=== PATIENT | female | born 1945 | race Caucasian/White ===

== ENCOUNTER → 2018-09-03 14:58 | Outpatient (CLI) | payer MEDICARE, OTHER, SELFPAY ==
--- NOTE | 2018-09-03 | DI.MG.S_ITS ---
BILATERAL DIGITAL SCREENING MAMMOGRAM 3D/2D WITH CAD: 09/03/2018 CLINICAL: Routine screening. Family history of breast cancer. Comparison is made to exams dated: 04/17/2017 mammogram, 11/09/2015 mammogram, and 09/12/2014 mammogram - [facility]. The tissue of both breasts is extremely dense, which lowers the sensitivity of mammography. Current study was also evaluated with a Computer Aided Detection (CAD) system. No significant masses, calcifications, or other findings are seen in either breast. There has been no significant interval change. IMPRESSION: NEGATIVE There is no mammographic evidence of malignancy. A 1 year screening mammogram is recommended. This exam was interpreted at Station ID: [id number]. NOTE: For mammograms, a report in lay terms will be sent to the patient. Approximately 15% of breast malignancies will not be visualized mammographically. In the management of a palpable breast mass, a negative mammogram must not discourage biopsy of a clinically suspicious lesion. Electronically Signed By: Uday brady/delmy:09/03/2018 20:50:26 letter sent: Normal Exam ACR BI-RADS Category 1: Negative 3341F
== END ==
PROVIDERS: Family Provider Internal Medicine; PCP Internal Medicine; Visit Provider Internal Medicine
DX: Z12.31 Encounter for screening mammogram for malignant neoplasm of breast (principal); Z80.3 Family history of malignant neoplasm of breast
CPT/HCPCS: 77063; 77067

== ENCOUNTER → 2019-03-25 09:40 | Outpatient (CLI) | payer MEDICARE, OTHER, SELFPAY | PROVIDERS: PCP Internal Medicine; Visit Provider Internal Medicine | DX: M85.852 Other specified disorders of bone density and structure, left thigh (principal); Z78.0 Asymptomatic menopausal state; Z87.891 Personal history of nicotine dependence | CPT/HCPCS: 77080 ==

== ENCOUNTER → 2020-04-05 10:28 | Outpatient (CLI) | payer MEDICARE, OTHER, SELFPAY ==
[2020-04-05 12:27] LABS: Alanine Aminotransferase 15 IU/L (<35); Albumin 4.4 g/dL (3.5-5.0); Albumin Globulin Ratio 1.8 (1.0-2.8); Alkaline Phosphatase 56 U/L (38-126); Aspartate Aminotransferase 27 IU/L (14-36); Bilirubin Total 0.6 mg/dL (0.2-1.3); Blood Urea Nitrogen 18 mg/dL (7-17); Calcium 9.5 mg/dL (8.4-10.2); Carbon Dioxide 32 mmol/L (22-32); Chloride 98 mmol/L (98-107); Cholesterol 186 mg/dL (140-199); Estimated Glomerular Filt Rate > 60.0 mL/min (>60); Globulin 2.5 g/dL (1.7-4.1); Glucose 81 mg/dL (80-110); HDL Cholesterol 95 mg/dL (40-60); HEMOLYSIS < 15 (0-50); LDL Cholesterol Calculated 83 mg/dL (<100); Potassium 4.1 mmol/L (3.4-5.1); Sodium 134 mmol/L (137-145); Total Protein 6.9 g/dL (6.3-8.2); Triglycerides 38 mg/dL (35-150)
[2020-04-05 14:59] LABS: Vitamin D 25 Hydroxy (D3) 30.1 ng/mL (30.0-100.0)
== END ==
PROVIDERS: PCP Internal Medicine; Referring Provider Internal Medicine; Visit Provider Internal Medicine
DX: M85.80 Other specified disorders of bone density and structure, unspecified site (principal); E78.5 Hyperlipidemia, unspecified
CPT/HCPCS: 36415; 80053; 80061; 82306

== ENCOUNTER → 2020-04-14 11:34 | Outpatient (CLI) | payer MEDICARE, OTHER, SELFPAY ==
--- NOTE | 2020-04-14 | DI.MG.S_ITS ---
BILATERAL DIGITAL SCREENING MAMMOGRAM 3D/2D WITH CAD: 04/14/2020 CLINICAL: Routine screening. Family history of breast cancer. Comparison is made to exams dated: 09/03/2018 mammogram, 04/17/2017 mammogram, and 11/09/2015 mammogram - [facility]. The tissue of both breasts is extremely dense, which lowers the sensitivity of mammography. Current study was also evaluated with a Computer Aided Detection (CAD) system. No significant masses, calcifications, or other findings are seen in either breast. There has been no significant interval change. IMPRESSION: NEGATIVE There is no mammographic evidence of malignancy. A 1 year screening mammogram is recommended. This exam was interpreted at Station ID: [id number]. NOTE: For mammograms, a report in lay terms will be sent to the patient. Approximately 15% of breast malignancies will not be visualized mammographically. In the management of a palpable breast mass, a negative mammogram must not discourage biopsy of a clinically suspicious lesion. Electronically Signed By: Mayra horn/delmy:04/16/2020 10:32:44 letter sent: Normal Exam ACR BI-RADS Category 1: Negative 3341F
== END ==
PROVIDERS: PCP Internal Medicine; Referring Provider Internal Medicine; Visit Provider Internal Medicine
DX: Z12.31 Encounter for screening mammogram for malignant neoplasm of breast (principal); Z80.3 Family history of malignant neoplasm of breast
CPT/HCPCS: 77063; 77067

== ENCOUNTER → 2021-05-13 13:24 | Outpatient (CLI) | payer MEDICARE, OTHER, SELFPAY ==
--- NOTE | 2021-05-13 | DI.RAD.S_ITS ---
PROCEDURE: XR CHEST 2V INDICATIONS: COUGH TECHNIQUE: 2 views of the chest were acquired. COMPARISON: None. FINDINGS: Surgical changes and devices: None. Lungs and pleura: Lungs are clear. No pleural effusions or pneumothorax. Mediastinum: Mediastinal contours are normal. Heart size is normal. Bones and chest wall: No suspicious bony abnormalities. Soft tissues appear unremarkable. IMPRESSION: No acute process. Dictated by: Jennifer Hackett M.D. on 05/13/2021 at 15:43 Approved by: Jennifer Hackett M.D. on 05/13/2021 at 15:45
== END ==
PROVIDERS: PCP Internal Medicine; Referring Provider Internal Medicine; Visit Provider Internal Medicine
DX: R05.9 Cough, unspecified (principal); R05.3 Chronic cough
CPT/HCPCS: 71046

== ENCOUNTER → 2022-03-24 08:44 | Outpatient (CLI) | payer MEDICARE, OTHER, SELFPAY ==
[2022-03-24 09:25] LABS: COVID19 -Nasal RAPID POSITIVE (Negative)
[2022-04-07 14:50] LABS: COVID19 -Nasal RAPID POSITIVE (Negative)
--- NOTE | 2022-04-07 21:02 | DI.NM.S_ITS ---
DATE OF SERVICE: 03/24/2022, completed 04/07/2022 PROCEDURE PERFORMED: Pharmacologic vasodilator stress and rest myocardial perfusion imaging study with gating to assess ejection fraction and regional wall motion. ORDERING PROVIDER: Dr. Ritika Avila. INDICATIONS: The patient is a 76-year-old female with atypical chest discomfort and exertional dyspnea. CARDIAC STRESS: Per protocol, 0.4 mg of regadenoson was infused with a normal hemodynamic response. She had no chest discomfort or other anginal symptoms. Her resting ECG shows sinus rhythm with normal ST segments and there were no significant ST-segment shifts or arrhythmias with stress. Per protocol, she was injected with 24.2 millicuries of technetium-99m Myoview was imaged 20 minutes later. It is notable that her stress test was performed on 04/07/2022, 14 days after her resting images were obtained on 03/24/2022 after injection of 11.8 millicuries of technetium-99m Myoview and was imaged 20 minutes following. This delay was because of a COVID-positive test. FINDINGS: 1. Raw data: There is fairly good myocardial tracer uptake without any significant motion artifact. The lung/heart ratio was normal at 0.34 with a normal TID ratio of 0.87. 2. Quantitated gated SPECT: Post-stress ejection fraction is estimated at 79% without any focal wall motion abnormality. The resting ejection fraction is calculated at 69%, although visually appears similar to the post-stress ejection fraction. Resting end-diastolic volume is normal at 74 mL. 3. Myocardial perfusion imaging: Post-stress supine images show a normal myocardial perfusion pattern with a very subtle defect in the inferior wall in a pattern consistent with diaphragmatic attenuation, supported by its complete resolution on the prone images, which reveal a normal, homogeneous perfusion pattern without any perfusion defects. The resting images show an identical perfusion pattern to that of the post-stress supine images without any areas of improvement. IMPRESSION: 1. Normal myocardial perfusion study. 2. Mild fixed inferior defect that resolves on prone imaging, consistent with diaphragmatic attenuation artifact. There is no compelling evidence for any myocardial ischemia or previous myocardial infarction. 3. Normal left ventricular systolic function without any focal wall motion abnormality. 4. No angina or ECG evidence of ischemia with pharmacologic vasodilator stress. Deb Rodgers - MARYANN/zaida/ambrosio doc#: [id number]/job#: [id number] dd: 04/07/2022 16:56:00 dt: 04/07/2022 20:52:00 DICTATING MD/COPIES TO: Bharat Paige MD COPIES MNE: SITA;
== END ==
PROVIDERS: PCP Internal Medicine; Referring Provider Internal Medicine; Visit Provider Internal Medicine
DX: U07.1 COVID-19 (principal); R07.9 Chest pain, unspecified
CPT/HCPCS: 78452; 87635; 93017; A9502; J2785

== ENCOUNTER → 2022-04-07 13:37 | Outpatient (CLI) | payer MEDICARE, OTHER, SELFPAY ==
--- NOTE | 2022-04-07 | DI.MG.S_ITS ---
BILATERAL DIGITAL SCREENING MAMMOGRAM 3D/2D WITH CAD: 04/07/2022 CLINICAL: Routine screening. Family history of breast cancer. Comparison is made to exams dated: 04/14/2020 mammogram, 04/17/2017 mammogram, and 09/03/2018 mammogram - [facility]. Both breasts are extremely dense, which lowers the sensitivity of mammography (category d />75% glandular tissue). Current study was also evaluated with a Computer Aided Detection (CAD) system. No significant masses, calcifications, or other findings are seen in either breast. There has been no significant interval change. IMPRESSION: NEGATIVE There is no mammographic evidence of malignancy. A 1 year screening mammogram is recommended. Based on the Tyrer Cuzick model (a risk assessment model) the patient's lifetime risk is 9.4% and her 10 year risk is 0.0%. According to the ACR, ACS, and NCCN guidelines, an annual breast MRI exam along with mammogram is recommended if the patient's lifetime risk is 20% or greater. This exam was interpreted at Station ID: [id number]. NOTE: For mammograms, a report in lay terms will be sent to the patient. Approximately 15% of breast malignancies will not be visualized mammographically. In the management of a palpable breast mass, a negative mammogram must not discourage biopsy of a clinically suspicious lesion. Electronically Signed By: Manish banerjee/delmy:04/07/2022 17:33:58 letter sent: Normal Exam ACR BI-RADS Category 1: Negative 3341F
== END ==
PROVIDERS: PCP Internal Medicine; Referring Provider Internal Medicine; Visit Provider Internal Medicine
DX: Z12.31 Encounter for screening mammogram for malignant neoplasm of breast (principal); Z80.3 Family history of malignant neoplasm of breast
CPT/HCPCS: 77063; 77067

== ENCOUNTER → 2022-07-09 13:34 | Outpatient (CLI) | payer MEDICARE, OTHER, SELFPAY ==
--- NOTE | 2022-07-09 13:50 | DIET.CONS ---
Dietary Consultation Note Assessment: 76y F [address] visit for help with moderate malnutrition (BMI 18.7). Pt started Methotrexate about a year ago for unidentified rash on body, since then has noticed weight drop and lower appetite. Upon review of Food Medication Interaction book, anorexia and decreased weight common side effect of this treatment. Pt recently lowered dose and plans to taper off medication. Pt taking folic acid supplement. Pt lives with spouse in large home, does not exercise but is physically active in ADLs. Pt has history of fairly strict weight management, always choosing small portion sizes and low fat/no fat and low carb options. Pt hadn't considered adding these foods to support weight repletion. Ht: 5'4 Wt: 109# BMI: 18.7 (low for age) UBW: 115# Usual Intake: B: coffee with whole milk and V8 juice or 1/2 banana L: cereal, canned salmon with dressing, tuna, leftovers, toast c pb, hb egg with cranberry or orange juice, sometimes a beer D: meat: 3-4oz steak, pork chop, mandel, salmon, sole, halibut, chicken c squash, peas, spinach, avocado, salad, peas Sn: tangerine or berries and a square of dark chocolate not a dessert person, likes fruit vodka and orange juice or martini- one before dinner and one after dinner likes peanuts and cashews but only eats ~5 at a time. Nutrition Diagnosis: 1. Acute on chronic moderate malnutrition r/t inadequate oral intake to meet physiological needs aeb BMI 18.7 (low for age), pt on methotrexate with drug food interactions of anorexia, pt with historical diet low in fat, kcals, and carbs to maintain figure. 2. inadequate intake mineral (calcium) r/t diet to support bone health aeb pt with low BMI, osteopenia, diet recall shows pt meeting <50% EER for calcium through food, pt not taking calcium supplement. Interventions: 1. Educated pt on high kcal and high protein diet within framework of what pt currently eats. Collaborated with pt on ways to increase kcals throughout the day such as: nuts and nut butters as snack or with breakfast, adding wg toast and avocado at lunch, and ensuring starch with dinner. Pt will start using whole milk in coffees instead of non-fat until weight repleted. 2. Educated pt on food sources of calcium using handout. Pt will include more cheese, milk, yogurt, dried fruit, and mineral water to diet. Educated pt on appropriate calcium supplementation of no more than 250-300mg at a time and to only supplement to fill gap. EER: 1400-1500kcals, 50g PRO, 1200-1500mg calcium (per PCP) Monitoring/Evaluations: f/u prn Electronically Signed by: Christie Donohue 07/09/22 13:50 Clinical Dietitian [address] [id number]
[2022-07-09 13:52] VITALS: BMI 18.7
== END ==
PROVIDERS: PCP Internal Medicine; Referring Provider Internal Medicine; Visit Provider Internal Medicine
DX: E44.0 Moderate protein-calorie malnutrition (principal); Z68.1 Body mass index [BMI] 19.9 or less, adult; Z71.3 Dietary counseling and surveillance
CPT/HCPCS: 97802

== ENCOUNTER → 2023-01-08 15:18 | Outpatient (CLI) | payer MEDICARE, OTHER, SELFPAY ==
[2023-01-08 15:45] LABS: Hematocrit 36.1 % (36-46); Hemoglobin 12.4 g/dL (12.0-16.0); Mean Corpuscular HGB Conc 34.5 % (30-36); Mean Corpuscular Hemoglobin 31.2 PG (26-34); Mean Corpuscular Volume 90.4 fL (80-100); Platelet Count 247 X10^3/uL (150-400); Red Blood Cell Count 3.99 X10^6/uL (4.0-5.2); Red Cell Distribution Width 13.3 % (11.6-14.8); White Blood Cell Count 6.1 X10^3/uL (4.5-11.0)
[2023-01-08 16:12] LABS: Alanine Aminotransferase 16 IU/L (<35); Albumin 4.2 g/dL (3.5-5.0); Albumin Globulin Ratio 1.6 (1.0-2.8); Alkaline Phosphatase 69 U/L (38-126); Aspartate Aminotransferase 24 IU/L (14-36); BUN Creatinine Ratio 26.9 (6-22); Bilirubin Total 0.2 mg/dL (0.2-1.3); Blood Urea Nitrogen 14 mg/dL (7-17); Calcium 8.8 mg/dL (8.4-10.2); Carbon Dioxide 30 mmol/L (22-32); Chloride 100 mmol/L (98-107); Cholesterol 171 mg/dL (140-199); Estimated Glomerular Filt Rate > 60 mL/min (>60); Globulin 2.6 g/dL (1.7-4.1); Glucose 90 mg/dL (80-110); HDL Cholesterol 98 mg/dL (40-60); HEMOLYSIS < 15 (0-50); LDL Cholesterol Calculated 60 mg/dL (<100); Sodium 137 mmol/L (137-145); Total Protein 6.8 g/dL (6.3-8.2); Triglycerides 63 mg/dL (35-150)
[2023-01-08 16:40] LABS: TSH w/ Reflex to FT4 2.32 uIU/mL (0.47-4.68)
[2023-01-08 17:01] LABS: Vitamin D 25 Hydroxy (D3) 29.1 ng/mL (30.0-100.0)
== END ==
PROVIDERS: PCP Internal Medicine; Referring Provider Internal Medicine; Visit Provider Internal Medicine
DX: E46 Unspecified protein-calorie malnutrition (principal); E55.9 Vitamin D deficiency, unspecified; E78.2 Mixed hyperlipidemia; I10 Essential (primary) hypertension; K59.01 Slow transit constipation
CPT/HCPCS: 36415; 80053; 80061; 82306; 84443; 85027

== ENCOUNTER → 2023-01-16 11:36 | Outpatient (CLI) | payer MEDICARE, OTHER, SELFPAY ==
--- NOTE | 2023-01-16 11:37 | DI.RAD.S_ITS ---
Bone Density Report Name: ERLINDA JENKINS Age: 77 Sex: Female Ethnicity: White Date of : 1945 Indication: postmenopausal; screening for osteoporosis; Referring Provider: MARISSA CHAMPION Study: Bone densitometry was performed. Exam Date: January 16, 2023 Accession number: [id number] Bone Density: Region BMD T-score Z-score Classification AP Spine(L1-L4) 1.204 1.4 4.0 Normal Femoral Neck (Left) 0.695 -1.4 0.8 Osteopenia Total Hip (Left) 0.921 -0.2 1.8 Normal Femoral Neck (Right) 0.733 -1.0 1.2 Normal Total Hip (Right) 0.972 0.2 2.2 Normal Total Hip Mean 0.947 0.0 2.0 Normal World Health Organization criteria for BMD impression classify patients as: Normal (T-score at or above -1.0), Osteopenia (T-score between -1.0 and -2.5), or Osteoporosis (T-score at or below -2.5). 10-year Fracture Risk(1): Major Osteoporotic Fracture 10% Hip Fracture 2.4% Reported Risk Factors: [place] (), Neck BMD=0.695, BMI=18.9 (1) FRAX(R) Version 3.08. Fracture probability calculated for an untreated patient. Fracture probability may be lower if the patient has received treatment. Previous Exams: -- Region Exam Age BMD T-score BMD Change BMD Change Date g/cm2 vs Baseline vs Previous -- AP Spine (L1-L4) 01/16/2023 77 1.204 1.4 -0.064 (-5.0%)# -0.064 (-5.0%)# 03/25/2019 73 1.268 2.0 Total Hip(Left) 01/16/2023 77 0.921 -0.2 -0.018 (-2.0%)# -0.018 (-2.0%)# 03/25/2019 73 0.940 0.0 Total Hip(Right) 01/16/2023 77 0.972 0.2 -0.026 (-2.6%)# -0.026 (-2.6%)# 03/25/2019 73 0.999 0.5 -- *Denotes significance at 95% confidence level, LSC for AP Spine = 0.022 g/cm2, LSC for Total Hip = 0.027 g/cm2 # Denotes dissimilar scan types or analysis methods Impression: The patient has low bone mass, based on the Left Femoral Neck T-score. The patient has an estimated ten-year risk of hip fracture of 2.4% and an estimated ten-year risk of major fracture of 10%, based on the WHO FRAX algorithm. No significant bone loss was observed. Discussion: BONE DENSITY IS LOW AT ONE OR MORE SKELETAL SITES. This patient's lowest T-score is low at one or more skeletal sites. It meets the World Health Organization's (WHO) criteria for low bone mass (T-score between -1.0 and -2.5). The patient's 10-year risk of fracture as calculated by FRAX is less than the threshold where pharmacological therapy is recommended by the National Osteoporosis Foundation (NOF). However, all treatment decisions require clinical judgment and consideration of individual patient factors, including patient preferences, comorbidities, previous drug use, risk factors not captured in the FRAX model (e.g., frailty, falls, vitamin D deficiency, increased bone turnover, interval significant decline in bone density) and possible under or overestimation of fracture risk by FRAX. The patient should follow a healthful lifestyle (good nutrition with adequate calcium and vitamin D, and appropriate weight-bearing exercise). Follow-Up: Consider repeating this study in 2 to 3 years to reassess this patient's status, or sooner if there is some new clinical indication. Reported by: MIKALA BELLAMY M.D. on 01/16/2023 12:10:00 PM.
== END ==
PROVIDERS: PCP Internal Medicine; Referring Provider Internal Medicine; Visit Provider Internal Medicine
DX: Z78.0 Asymptomatic menopausal state (principal); Z13.820 Encounter for screening for osteoporosis; M85.852 Other specified disorders of bone density and structure, left thigh
CPT/HCPCS: 77080

== ENCOUNTER → 2023-05-23 11:06 | Outpatient (CLI) | payer MEDICARE, OTHER, SELFPAY ==
--- NOTE | 2023-05-23 | DI.MG.S_ITS ---
BILATERAL DIGITAL SCREENING MAMMOGRAM 3D/2D WITH CAD: 05/23/2023 CLINICAL: Routine screening. Family history of breast cancer. Comparison is made to exams dated: 04/07/2022 mammogram, 04/14/2020 mammogram, and 09/03/2018 mammogram - [facility]. Both breasts are extremely dense, which lowers the sensitivity of mammography (category d />75% glandular tissue). Current study was also evaluated with a Computer Aided Detection (CAD) system. No significant masses, calcifications, or other findings are seen in either breast. There has been no significant interval change. IMPRESSION: NEGATIVE There is no mammographic evidence of malignancy. A 1 year screening mammogram is recommended. Based on the Tyrer Cuzick model (a risk assessment model) the patient's lifetime risk is 8.4% and her 10 year risk is 0.0%. According to the ACR, ACS, and NCCN guidelines, an annual breast MRI exam along with mammogram is recommended if the patient's lifetime risk is 20% or greater. This exam was interpreted at Station ID: [id number]. NOTE: For mammograms, a report in lay terms will be sent to the patient. Approximately 15% of breast malignancies will not be visualized mammographically. In the management of a palpable breast mass, a negative mammogram must not discourage biopsy of a clinically suspicious lesion. Electronically Signed By: Ulysses valente/delmy:05/25/2023 10:13:11 letter sent: Normal Exam ACR BI-RADS Category 1: Negative 3341F
== END ==
PROVIDERS: PCP Internal Medicine; Referring Provider Internal Medicine; Visit Provider Internal Medicine
DX: Z12.31 Encounter for screening mammogram for malignant neoplasm of breast (principal); Z80.3 Family history of malignant neoplasm of breast
CPT/HCPCS: 77063; 77067

== ENCOUNTER → 2024-01-12 14:39 | Outpatient (CLI) | payer MEDICARE, OTHER, SELFPAY ==
[2024-01-12 17:51] LABS: Aspartate Aminotransferase 25 IU/L (14-36); BUN Creatinine Ratio 23.7 (6-22); Blood Urea Nitrogen 14 mg/dL (7-17); Calcium 9.2 mg/dL (8.4-10.2); Carbon Dioxide 29 mmol/L (22-32); Chloride 100 mmol/L (98-107); Cholesterol 180 mg/dL (140-199); Estimated Glomerular Filt Rate > 60 mL/min (>60); Glucose 79 mg/dL (80-110); HEMOLYSIS < 15 (0-50); Potassium 4.2 mmol/L (3.4-5.1); Sodium 134 mmol/L (137-145); Triglycerides 52 mg/dL (35-150)
[2024-01-12 17:58] LABS: HDL Cholesterol 112 mg/dL (40-60); LDL Cholesterol Calculated 58 mg/dL (<100)
== END ==
PROVIDERS: PCP Internal Medicine; Referring Provider Internal Medicine; Visit Provider Internal Medicine
DX: E78.2 Mixed hyperlipidemia (principal); I10 Essential (primary) hypertension
CPT/HCPCS: 36415; 80048; 80061; 84450

== ENCOUNTER → 2024-09-06 14:51 | Outpatient (CLI) | payer MEDICARE, OTHER, SELFPAY ==
--- NOTE | 2024-09-06 14:53 | DI.MG.S_ITS ---
MM screening mammo BI: 09/06/2024. BI-RADS: 1 CLINICAL: 78-year old female for bilateral screening mammogram. Tyrer-Cuzick lifetime risk of 4.5%. No personal or first-degree family history of breast cancer. Current reported family history of breast cancer: paternal grandmother. History of ovarian cancer in one first-degree relative. PRIOR EXAMS 05/23/2023, 04/07/2022, 04/14/2020, 09/03/2018. MAMMOGRAPHY TECHNIQUE: 2D and 3D (tomosynthesis) digital mammographic views obtained, with additional images as needed for full coverage. Current study was also evaluated with a Computer Aided Detection (CAD) system. DENSITY D. The breasts are extremely dense, which lowers the sensitivity of mammography. MAMMOGRAPHY FINDINGS Bilateral: No suspicious mass, asymmetry, microcalcification, or other abnormality seen. IMPRESSION: * No evidence of malignancy. RECOMMENDATIONS Bilateral * Annual screening mammography. OVERALL ASSESSMENT CATEGORY BI-RADS-1: Negative. The [employer] recommends annual screening mammography beginning at age 40 for women with average risk of breast cancer. ELECTRONICALLY SIGNED: Manish Jaramillo M.D. on 09/06/2024 at 03:54:38 PM PT Interpreting Station ID: [id number]
--- NOTE | 2024-09-06 14:53 | DI.RAD.S_ITS ---
PROCEDURE: XR DEXA AXIAL SKELETON INDICATIONS: Osteopenia follow up COMPARISON: [facility], CR, XR DEXA AXIAL SKELETON, 01/16/2023, 11:57. FINDINGS: Lumbar Spine: Bone mineral density 1.201 (previously 1.204) g/cm2, T score 1.4 (previously 1.4). Left Femoral Neck: Bone mineral density 0.659 (previously 0.695) g/cm2, T score -1.7 (previously -1.4). Left Hip: Bone mineral density 0.868 (previously 0.921) g/cm2, T score -0.6 (previously -0.2). Fracture Risk Calculation (when applicable): 10-year fracture risk of a major osteoporotic fracture 11 percent and of a hip fracture 3.1 percent. (T score greater or equal to -1.0 to: NORMAL) (T score from -1.1 to -2.4: OSTEOPENIA) (T score less than or equal to -2.5: OSTEOPOROSIS) IMPRESSION: Osteopenia--- recommend repeat DEXA in 2-3 years for reassessment. Follow-up guidelines as follows: Osteoporosis: Consider a repeat DEXA and Vertebral Fracture Assessment (VFA) exam in 2 years or sooner if medically necessary, to reassess this patient's status. Osteopenia: Consider a repeat DEXA in 2-3 years to reassess this patient's status, or if there is a new clinical indication. Normal: Consider a repeat DEXA in 5 years or sooner, or if there is a new clinical indication. All treatment decisions require clinical judgment and consideration of individual patient factors, including patient preferences, comorbidities, previous drug use, risk factors not captured in the FRAX model (e.g., frailty, falls, vitamin D deficiency, increased bone turnover, interval significant decline in bone density ) and possible under- or over-estimation of fracture risk by FRAX. In addition, the NOF Guide recommends that FDA-approved medical therapies be considered in postmenopausal women and men age >= 50 years with a: * Hip or vertebral (clinical or morphometric) fracture * T-score of <=-2.5 at the spine or hip * Ten-year fracture probability by FRAX of >= 3% for hip fracture or >=20% for major osteoporotic fracture. Dictated by: Henri Dacosta M.D. on 09/07/2024 at 7:45 Approved by: Henri Dacosta M.D. on 09/07/2024 at 8:32
== END ==
LOC: MAMMO 14:52
PROVIDERS: PCP Internal Medicine; Referring Provider Internal Medicine; Visit Provider Internal Medicine
DX: Z80.3 Family history of malignant neoplasm of breast (principal); Z12.31 Encounter for screening mammogram for malignant neoplasm of breast; Z80.41 Family history of malignant neoplasm of ovary; R92.343 Mammographic extreme density, bilateral breasts; M85.89 Other specified disorders of bone density and structure, multiple sites
CPT/HCPCS: 77063; 77067; 77080